=== PATIENT | female | born 1980 | race Caucasian/White ===

== ENCOUNTER 2016-10-01 12:36 | Emergency (ER) | payer MEDICAID ==
[~2016-10-01] VITALS: Ht 157.5 cm; Wt 90.0 kg
[2016-10-01 12:38] VITALS: BP 118/83
== END 2016-10-01 13:37 | disposition home or self-care (01) ==
LOC: ED 13:25
DX: M25.552 Pain in left hip (principal); M25.551 Pain in right hip
CPT/HCPCS: 99283

== ENCOUNTER → 2016-10-07 | Outpatient (CLI) | payer MEDICAID | END | disposition home or self-care (01) | LOC: CFH 10:30 → EDSTATUS 11:00 | PROVIDERS: ATTEND Nurse Practitioner Family | DX: N83.202 Unspecified ovarian cyst, left side (principal); G89.29 Other chronic pain | CPT/HCPCS: 76830 ==

== ENCOUNTER 2020-04-14 17:02 | Emergency (ER) | payer MEDICAID ==
--- NOTE | 2020-04-14 17:12 | NUR ---
lPatient left immediately after checking in with registration as she was told there was a wait to be roomed
== END 2020-04-14 17:14 | disposition left against medical advice (07) ==
LOC: ED 17:10
DX: Z53.21 Procedure and treatment not carried out due to patient leaving prior to being seen by health care provider (principal)